=== PATIENT | male | born 1965 | race Caucasian/White ===

== ENCOUNTER 2016-07-10 11:47 | Emergency (ER) | payer MEDICAID ==
[2009-05-18 06:30] VITALS: BMI 32.9
== END 2016-07-10 14:44 | disposition home or self-care (01) ==
LOC: D.ER 11:47
DX: I12.0 Hypertensive chronic kidney disease with stage 5 chronic kidney disease or end stage renal disease (principal); N18.6 End stage renal disease; Z99.2 Dependence on renal dialysis

== ENCOUNTER 2016-12-24 21:47 | Emergency (ER) | payer MEDICAID ==
[2009-05-18 06:30] VITALS: BMI 32.9
== END 2016-12-24 23:00 | disposition left against medical advice (07) ==
LOC: D.ER 21:47
DX: R51 Headache (principal)

== ENCOUNTER 2017-02-14 03:43 | Emergency (ER) | payer MEDICAID ==
[2009-05-18 06:30] VITALS: BMI 32.9
== END 2017-02-14 06:14 | disposition home or self-care (01) ==
LOC: D.ER 03:43
DX: S39.012A Strain of muscle, fascia and tendon of lower back, initial encounter (principal); V43.52XA Car driver injured in collision with other type car in traffic accident, initial encounter; Y93.89 Activity, other specified; Y92.410 Unspecified street and highway as the place of occurrence of the external cause; F17.200 Nicotine dependence, unspecified, uncomplicated

== ENCOUNTER 2017-02-14 20:23 | Emergency (ER) | payer MEDICAID ==
[2009-05-18 06:30] VITALS: BMI 32.9
== END 2017-02-14 22:00 | disposition home or self-care (01) ==
LOC: D.ER 20:23
DX: S39.012A Strain of muscle, fascia and tendon of lower back, initial encounter (principal); V49.9XXA Car occupant (driver) (passenger) injured in unspecified traffic accident, initial encounter; Y93.89 Activity, other specified; Y92.410 Unspecified street and highway as the place of occurrence of the external cause; S16.1XXA Strain of muscle, fascia and tendon at neck level, initial encounter; M62.838 Other muscle spasm

== ENCOUNTER 2017-02-14 22:27 | Emergency (ER) | payer MEDICAID ==
[2009-05-18 06:30] VITALS: BMI 32.9
== END 2017-02-14 23:00 | disposition home or self-care (01) ==
LOC: D.ER 22:27
DX: Z03.89 Encounter for observation for other suspected diseases and conditions ruled out (principal)

== ENCOUNTER 2017-04-07 19:06 | Emergency (ER) | payer MEDICAID ==
[2009-05-18 06:30] VITALS: BMI 32.9
[2017-04-07 20:42] LABS: APPEARANCE CLEAR (CLEAR); BILIRUBIN NEGATIVE (NEGATIVE); COLOR YELLOW (YELLOW); GLUCOSE NEGATIVE (NEGATIVE); KETONE NEGATIVE (NEGATIVE); NITRITE NEGATIVE (NEGATIVE); PROTEIN NEGATIVE (NEGATIVE); SPECIFIC GRAVITY 1.025 (1.005-1.020); UROBILINOGEN NORMAL (NORMAL)
[2017-04-07 20:42] LABS: BASOPHILS 0.2 % (0-2); EOSINOPHILS 3.7 % (0-7); HEMATOCRIT 39.6 % (42.0-54.0); HEMOGLOBIN 12.8 g/dL (13.5-17.5); IMMATURE GRANULOCYTES 0.2 % (0-5); LYMPHOCYTES 35.1 % (15-50); MCH 28.3 pg (26.0-34.0); MCHC 32.3 g/dL (31.0-37.0); MCV 87.4 fL (80.0-100.0); MEAN PLATELET VOLUME 9.7 fL (7.4-10.4); MONOCYTES 6.1 % (2-11); NEUTROPHILS 54.7 % (40-80); RBC 4.53 10x6/uL (4.20-6.10); RDW 13.3 % (11.5-14.5); WBC 6.2 10x3/uL (4.8-10.8)
[2017-04-07 20:48] LABS: PLATELET COUNT 238 10x3/uL (130-400)
[2017-04-07 21:01] LABS: UDS - AMPHET NEGATIVE QUAL (NEGATIVE); UDS - BARB POSITIVE QUAL (NEGATIVE); UDS - BENZO POSITIVE QUAL (NEGATIVE); UDS - COCAINE NEGATIVE QUAL (NEGATIVE); UDS - OPIATE POSITIVE QUAL (NEGATIVE); UDS - PCP NEGATIVE QUAL (NEGATIVE); UDS - THC NEGATIVE QUAL (NEGATIVE)
[2017-04-07 21:06] LABS: ALBUMIN 3.4 g/dL (3.4-5.0); ALKALINE PHOSPHATASE 73 U/L (46-116); ALT (SGPT) 22 U/L (10-68); BILIRUBIN - TOTAL 0.13 mg/dL (0.2-1.3); CALC OSMOLALITY 282 mosm/kg (275-300); CALCIUM 8.6 mg/dL (8.5-10.1); CARBON DIOXIDE 26.4 mmol/L (21.0-32.0); CHLORIDE - SERUM 108 mmol/L (98-107); CREATININE - SERUM 0.9 mg/dL (0.6-1.3); GLUCOSE 98 mg/dL (74-106); POTASSIUM - SERUM 3.7 mmol/L (3.5-5.1); PROTEIN - SERUM 6.3 g/dL (6.4-8.2); SODIUM 141 mmol/L (136-145); UREA NITROGEN 17 mg/dL (7-18); eGFR NON AFRICAN AMERICAN > 90 mL/min (90-120)
== END 2017-04-08 15:08 | disposition home or self-care (01) ==
LOC: D.ER 19:06
PROVIDERS: Physician Assistant Medical
DX: F11.10 Opioid abuse, uncomplicated (principal); F13.10 Sedative, hypnotic or anxiolytic abuse, uncomplicated; F19.10 Other psychoactive substance abuse, uncomplicated

== ENCOUNTER 2017-09-10 19:40 | Inpatient (IN) | payer MEDICAID ==
[~2017-09-10] VITALS: Ht 182.9 cm; Wt 105.5 kg
--- NOTE | ~2017-09-10 | CN ---
PATIENT NAME:YAN MCNEIL MEDICAL RECORD: [id number] : 69 LOCATION:ELAD.2309 ADMIT DATE: 09/10/17 ACCOUNT: [id number] CONSULTING PHYSICIAN: OC RAMSAY III, MD REFERRING PHYSICIAN: NAKUL SGAE MD DATE OF CONSULTATION: 09/11/2017 FINDINGS: This is a 52-year-old white male who was admitted to the intensive care unit following an overdose on baclofen. 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 He stated that he had been unaccustomed to working this hard for quite some time, although he did have experience doing this kind of work when he was much younger. He stated that during the second day, the pain became very severe and he took more of his medication than he should have. In addition to this, the patient is suffering from an acute urinary tract infection. Other stressors include the fact that the patient is currently from his and will likely have a divorce in the very near future. On the positive side, he is currently living with his former [id number] and they do plan to go into the car business together. The patient does admit to a past history of alcohol abuse, but denies current abuse at the present time. The patient very strongly denies the desire to hurt himself yesterday or at the current time. On exam, mood is generally pleasant. Affect is somewhat reserved. Speech is fluent. Content of thought is negative for suicidal ideation or intent. The patient is oriented and memory is intact. DIAGNOSTIC IMPRESSION: AXIS I: Depression by history -- currently not suicidal. PLAN: 1. I have discussed with the patient the advisability of getting outpatient treatment. He is agreeable to an appointment at [facility]. Nursing staff has been informed of this. 2. I feel that he may be discharged when medically stable. TRANSINT:[id number] Voice Confirmation ID: [id number] DOCUMENT ID: [id number] OC RAMSAY III, MD at 0553 CC: [id number] DICTATION DATE: 09/11/171509 DITCHING MACHINE OPERATING ENGINEER: 09/11/17 151 DIS IN 09/11/17 [id number] [place] [address]
[2017-09-10 20:10] LABS: BASOPHILS 0.3 % (0-2); EOSINOPHILS 3.2 % (0-7); HEMOGLOBIN 13.5 g/dL (13.5-17.5); IMMATURE GRANULOCYTES 0.1 % (0-5); LYMPHOCYTES 32.7 % (15-50); MCH 28.2 pg (26.0-34.0); MCHC 32.9 g/dL (31.0-37.0); MCV 85.6 fL (80.0-100.0); MEAN PLATELET VOLUME 9.6 fL (7.4-10.4); NEUTROPHILS 55.7 % (40-80); PLATELET COUNT 239 10x3/uL (130-400); RBC 4.79 10x6/uL (4.20-6.10); RDW 13.3 % (11.5-14.5); WBC 6.9 10x3/uL (4.8-10.8)
[2017-09-10 20:20] VITALS: BP 151/99
[2017-09-10 20:23] LABS: APPEARANCE CLEAR (CLEAR); BILIRUBIN NEGATIVE (NEGATIVE); COLOR YELLOW (YELLOW); GLUCOSE NEGATIVE (NEGATIVE); KETONE NEGATIVE (NEGATIVE); NITRITE NEGATIVE (NEGATIVE); PROTEIN NEGATIVE (NEGATIVE); UROBILINOGEN NORMAL (NORMAL)
[2017-09-10 20:25] LABS: BACTERIA MODERATE /hpf (NONE SEEN); EPITHELIAL CELLS 0-5 /hpf (0-5); MUCUS <1+ /lpf (NONE SEEN); RED CELLS - URINE 0-5 /hpf (0-5); WHITE CELLS - URINE 25-50 /hpf (0-5)
[2017-09-10 20:33] LABS: ACETAMINOPHEN 7.9 ug/mL (10.0-30.0); ALBUMIN 3.7 g/dL (3.4-5.0); ALKALINE PHOSPHATASE 92 U/L (46-116); ALT (SGPT) 32 U/L (10-68); CALC OSMOLALITY 292 mosm/kg (275-300); CALCIUM 9.4 mg/dL (8.5-10.1); CARBON DIOXIDE 25.6 mmol/L (21.0-32.0); CHLORIDE - SERUM 111 mmol/L (98-107); GLUCOSE 108 mg/dL (74-106); PROTEIN - SERUM 6.9 g/dL (6.4-8.2); SODIUM 146 mmol/L (136-145); UREA NITROGEN 15 mg/dL (7-18); eGFR NON AFRICAN AMERICAN 84 mL/min (90-120)
[2017-09-10 20:33] LABS: UDS - AMPHET NEGATIVE QUAL (NEGATIVE); UDS - BARB POSITIVE QUAL (NEGATIVE); UDS - BENZO NEGATIVE QUAL (NEGATIVE); UDS - COCAINE NEGATIVE QUAL (NEGATIVE); UDS - OPIATE POSITIVE QUAL (NEGATIVE); UDS - PCP NEGATIVE QUAL (NEGATIVE); UDS - THC NEGATIVE QUAL (NEGATIVE)
[2017-09-10 21:20] VITALS: BP 112/66
[2017-09-10 22:20] VITALS: BP 101/61
[2017-09-10 23:00] VITALS: BP 122/80
[2017-09-11] VITALS (15 sets, daily range): BP systolic 121–169; BP diastolic 73–99; Ht 182.9 cm; Wt 105.5 kg
[2017-09-11] MEDS ORDERED: FIORICET-COD 51 EACH PO (00:34)
[2017-09-11] MEDS ORDERED: HYDROCODONE-APA1 TAB PO (00:35)
[2017-09-11] MEDS ORDERED: AMBIEN10 MG PO (00:35)
[2017-09-11] MEDS ORDERED: BACLOFEN10 MG PO (03:03)
[2017-09-11] MEDS ORDERED: NEURONTIN 400400 MG PO (03:03)
[2017-09-11] MEDS ORDERED: SINEQUAN25 MG PO (03:06)
[2017-09-11 06:24] LABS: BASOPHILS 0.1 % (0-2); HEMATOCRIT 39.6 % (42.0-54.0); HEMOGLOBIN 12.8 g/dL (13.5-17.5); IMMATURE GRANULOCYTES 0.1 % (0-5); LYMPHOCYTES 37.2 % (15-50); MCH 27.9 pg (26.0-34.0); MCHC 32.3 g/dL (31.0-37.0); MCV 86.5 fL (80.0-100.0); MEAN PLATELET VOLUME 9.8 fL (7.4-10.4); MONOCYTES 8.6 % (2-11); PLATELET COUNT 233 10x3/uL (130-400); RBC 4.58 10x6/uL (4.20-6.10); RDW 13.6 % (11.5-14.5); WBC 7.3 10x3/uL (4.8-10.8)
[2017-09-11 06:42] LABS: ALBUMIN 3.2 g/dL (3.4-5.0); ALKALINE PHOSPHATASE 82 U/L (46-116); ALT (SGPT) 28 U/L (10-68); BILIRUBIN - TOTAL 0.26 mg/dL (0.2-1.3); CALC OSMOLALITY 284 mosm/kg (275-300); CALCIUM 8.7 mg/dL (8.5-10.1); CARBON DIOXIDE 26.5 mmol/L (21.0-32.0); CHLORIDE - SERUM 110 mmol/L (98-107); CREATININE - SERUM 0.9 mg/dL (0.6-1.3); GLUCOSE 92 mg/dL (74-106); POTASSIUM - SERUM 3.9 mmol/L (3.5-5.1); PROTEIN - SERUM 6.4 g/dL (6.4-8.2); SODIUM 143 mmol/L (136-145); UREA NITROGEN 12 mg/dL (7-18); eGFR NON AFRICAN AMERICAN > 90 mL/min (90-120)
[2017-09-11] MEDS ORDERED: BACTRIM DS TABL1 TAB PO (15:11)
== END 2017-09-11 18:00 | disposition home or self-care (01) | DRG 918 ==
LOC: D.ER 19:40 → D.ICU 22:32 → D.EDHOLD 22:32 → D.ICU 22:32 → D.EDHOLD 22:33 → D.ICU 09-11 02:00
PROVIDERS: Family Medicine
DX: T42.8X2A Poisoning by antiparkinsonism drugs and other central muscle-tone depressants, intentional self-harm, initial encounter (principal); N39.0 Urinary tract infection, site not specified; F32.9 Major depressive disorder, single episode, unspecified

== ENCOUNTER 2018-01-31 03:53 | Inpatient (IN) | payer MEDICAID ==
[2018-01-31] VITALS (32 sets, daily range): BP systolic 104–139; BP diastolic 62–90; Ht 182.9 cm; Wt 111.2 kg
[~2018-01-31] VITALS: Ht 182.9 cm; Wt 111.2 kg
--- NOTE | ~2018-01-31 | MORECARE ---
CASE MANAGEMENT DISCHARGE SUMMARY PATIENT: YAN MCNEIL UNIT: [id number] ADM DATE: 01/31/18 AGE: 52 : [birth year] SEX: M ROOM/BED: D.2314 AUTHOR: AIDA SOTO PHYSICIAN: REFERRING PHYSICIAN: RADHA SAENZ MD DATE OF SERVICE: 02/02/18 Discharge Plan Patient Name: YAN MCNEIL [facility] [facility] 1965 Planned Disposition: Inpatient Psych Facility Anticipated Discharge Date: Discharge Date: 02/02/2018 Expected LOS: Initial Reviewer: [email or web address] Initial Review Date: 01/31/2018 Generated: 02/02/18 7:03 pm Comments DCP- Discharge Planning Updated by [email or web address]: Aparna Reynoso on 02/02/18 4:[address] LATE ENTRY 02/01/18 @ 1500 CM was notified that patient needed inpatient psychiatric or drug rehab placement. CM met with patient regarding discharge planning. Patient refusing to go to inpatient psychiatric or inpatient drug rehab facility. At that point the patient was placed on [address] Florez. Placed on hold at 15:15 02/01/18. CM will continue to follow and assist with discharge planning / needs LATE ENTRY 02/02/18 @ 1045 CM notified that patient was now willing for placement. CM notified transfer center and faxed over records. CM was notified that patient would only go to [facility] in [place] d/t transportation getting home. CM called [facility] to see if beds are available. Meanwhile received notice that patient had been accepted to [facility] in and agreeing to go. CM will continue to follow and assist as needed with discharge planning. Last DP export: 02/02/18 4:35 p Patient Name: YAN MCNEIL Page [id number] at 1803 All edits/amendments must be made on the electronic document DICTATION DATE: 02/02/181801 WAY INSPECTOR: ROSANNA 02/02/181801 RPT#: [id number] DC DATE:02/02/18 STATUS: DIS IN [id number] [place] [address] END OF REPORT
--- NOTE | ~2018-01-31 | CN ---
PATIENT NAME:YAN MCNEIL MEDICAL RECORD: [id number] : [birth year] LOCATION:MissyICUD.2314 ADMIT DATE: 01/31/18 ACCOUNT: [id number] CONSULTING PHYSICIAN: ERIK BAILEY MD REFERRING PHYSICIAN: RADHA SAENZ MD DATE OF CONSULTATION: 01/31/2018 IDENTIFYING DATA: The patient is 52 years old and he is admitted to the hospital on a voluntary basis secondary to an overdose. The patient apparently has a roommate, who was concerned that he had taken too many medications and he called the ambulance. The patient states that this was accidental, but he apparently emptied several bottles. He was quite lethargic. He had empty bottles of [place], Fioricet, and Xanax and they were filled in late January 25 and now are empty. The roommate told EMS that he did not think the patient was trying to kill himself and he says he was not. The patient himself endorses a lot of depressive symptoms, but says he was not trying to kill himself. He has no explanation as to how he could have taken so many pills. He strongly denies that he has a substance abuse problem. MENTAL STATUS EXAMINATION: The patient is awake, alert and oriented to person, place, time and situation. His mood is flat. His affect is constricted. Thought processes are circumstantial. Memory, concentration, and abstraction abilities are moderately impaired, and he denies any intent to harm himself or others as well as overt psychotic symptoms. ASSESSMENT: 1. Status post overdose. 2. Major depression. 3. Rule out substance abuse. PLAN: At this time, the situation is potentially very dangerous. This is a patient, who easily could have killed himself if his roommate had not called the police. There is no real explanation as to why he has emptied in less than a week full bottles of very dangerous medications. Even if he is a heavy substance abuser, this is still excessive. I think that there is reasonable grounds to believe that this was a potential suicide, especially since the patient is adamant that he does not have a substance abuse problem. It is my recommendation that once he is medically stabilized, he is either transferred to acute inpatient psychiatric care for a brief observation to ensure that he is not indeed actually dangerous to himself or if he is more forthcoming about his substance abuse and indicates that he does have a substance abuse problem, it would be reasonable and appropriate to send him to a residential substance abuse program. Either this was an intentional overdose or he has a very bad substance abuse problem, either way he is a potential risk to himself and should not be just allowed to go to outpatient care. TRANSINT:[id number] Voice Confirmation ID: [id number] DOCUMENT ID: [id number] CONSULT REPORT [id number] YAN MCNEIL, ERIK NAP[place]ES at 1017 CC: [id number] DICTATION DATE: 01/31/18 1250 TAXICAB DRIVER: 01/31/18 1312 ADM IN [id number] [place] [address]
--- NOTE | ~2018-01-31 | MORECARE ---
CASE MANAGEMENT DISCHARGE SUMMARY PATIENT: YAN MCNEIL UNIT: [id number] ADM DATE: 01/31/18 AGE: 52 : [birth year] SEX: M ROOM/BED: D.2314 AUTHOR: AIDA SOTO PHYSICIAN: REFERRING PHYSICIAN: RADHA SAENZ MD DATE OF SERVICE: 02/02/18 Discharge Plan Patient Name: YAN MCNEIL [facility] [facility] 1965 Planned Disposition: Inpatient Psych Facility Anticipated Discharge Date: Discharge Date: 02/02/2018 Expected LOS: Initial Reviewer: [email or web address] Initial Review Date: 01/31/2018 Generated: 02/02/18 6:35 pm External Providers External Provider: [facility] Next Contact Date: Service Request Date: Service Type: Resolution: Reviewer: Comments: Patient Name: YAN MCNEIL Page [phone] at 1735 All edits/amendments must be made on the electronic document DICTATION DATE: 02/02/181734 UTILITY ACCOUNTS DIRECTOR: ROSANNA 02/02/181734 RPT#: [id number] DC DATE:02/02/18 STATUS: DIS IN [facility] [address] [place] [address] END OF REPORT
[~2018-01-31 03:53] MED LIST: AMBIEN10 MG PO; BACLOFEN10 MG PO; BACTRIM DS TABL1 TAB PO; FIORICET-COD 51 EACH PO; HYDROCODONE-APA1 TAB PO; NEURONTIN 400400 MG PO; SINEQUAN25 MG PO
[2018-01-31 04:21] LABS: BASOPHILS 0.1 % (0-2); EOSINOPHILS 3.2 % (0-7); HEMATOCRIT 41.2 % (42.0-54.0); HEMOGLOBIN 13.6 g/dL (13.5-17.5); IMMATURE GRANULOCYTES 0.4 % (0-5); MCH 29.1 pg (26.0-34.0); MCV 88.2 fL (80.0-100.0); MEAN PLATELET VOLUME 9.7 fL (7.4-10.4); MONOCYTES 10.6 % (2-11); NEUTROPHILS 53.7 % (40-80); PLATELET COUNT 235 10x3/uL (130-400); RBC 4.67 10x6/uL (4.20-6.10); RDW 13.1 % (11.5-14.5); WBC 6.9 10x3/uL (4.8-10.8)
[2018-01-31 04:30] LABS: UDS - AMPHET NEGATIVE QUAL (NEGATIVE); UDS - BARB POSITIVE QUAL (NEGATIVE); UDS - BENZO NEGATIVE QUAL (NEGATIVE); UDS - COCAINE NEGATIVE QUAL (NEGATIVE); UDS - OPIATE POSITIVE QUAL (NEGATIVE); UDS - PCP NEGATIVE QUAL (NEGATIVE); UDS - THC POSITIVE QUAL (NEGATIVE)
[2018-01-31 04:36] LABS: ACETAMINOPHEN 3.1 ug/mL (10.0-30.0); ALBUMIN 3.3 g/dL (3.4-5.0); ALKALINE PHOSPHATASE 78 U/L (46-116); ALT (SGPT) 48 U/L (10-68); CALC OSMOLALITY 290 mosm/kg (275-300); CALCIUM 8.7 mg/dL (8.5-10.1); CARBON DIOXIDE 24.4 mmol/L (21.0-32.0); CHLORIDE - SERUM 108 mmol/L (98-107); GLUCOSE 108 mg/dL (74-106); MAGNESIUM - SERUM 2.2 mg/dL (1.8-2.4); POTASSIUM - SERUM 3.7 mmol/L (3.5-5.1); PROTEIN - SERUM 6.6 g/dL (6.4-8.2); SODIUM 144 mmol/L (136-145); UREA NITROGEN 21 mg/dL (7-18); eGFR NON AFRICAN AMERICAN 84 mL/min (90-120)
[2018-01-31 04:40] LABS: BILIRUBIN - TOTAL 0.09 mg/dL (0.2-1.3)
[2018-01-31 04:42] LABS: APPEARANCE HAZY (CLEAR); BILIRUBIN NEGATIVE (NEGATIVE); COLOR YELLOW (YELLOW); GLUCOSE NEGATIVE (NEGATIVE); KETONE NEGATIVE (NEGATIVE); NITRITE NEGATIVE (NEGATIVE); PROTEIN NEGATIVE (NEGATIVE); UROBILINOGEN NORMAL (NORMAL)
[2018-01-31 04:43] LABS: BACTERIA MODERATE /hpf (NONE SEEN); EPITHELIAL CELLS OCC /hpf (0-5); WHITE CELLS - URINE 25-50 /hpf (0-5)
[2018-02-01] VITALS (20 sets, daily range): BP systolic 117–169; BP diastolic 65–108
[2018-02-01 05:11] LABS: BASOPHILS 0.1 % (0-2); EOSINOPHILS 3.3 % (0-7); HEMATOCRIT 40.5 % (42.0-54.0); HEMOGLOBIN 13.1 g/dL (13.5-17.5); IMMATURE GRANULOCYTES 0.3 % (0-5); LYMPHOCYTES 33.2 % (15-50); MCH 28.6 pg (26.0-34.0); MCHC 32.3 g/dL (31.0-37.0); MCV 88.4 fL (80.0-100.0); MEAN PLATELET VOLUME 10.2 fL (7.4-10.4); MONOCYTES 8.2 % (2-11); NEUTROPHILS 54.9 % (40-80); PLATELET COUNT 248 10x3/uL (130-400); RBC 4.58 10x6/uL (4.20-6.10); WBC 7.1 10x3/uL (4.8-10.8)
[2018-02-01 05:32] LABS: ALBUMIN 2.9 g/dL (3.4-5.0); ALKALINE PHOSPHATASE 76 U/L (46-116); ALT (SGPT) 50 U/L (10-68); BILIRUBIN - TOTAL 0.22 mg/dL (0.2-1.3); CALCIUM 8.2 mg/dL (8.5-10.1); CHLORIDE - SERUM 107 mmol/L (98-107); CREATININE - SERUM 0.9 mg/dL (0.6-1.3); GLUCOSE 79 mg/dL (74-106); PHOSPHOROUS 3.4 mg/dL (2.5-4.9); POTASSIUM - SERUM 3.9 mmol/L (3.5-5.1); SODIUM 141 mmol/L (136-145); eGFR NON AFRICAN AMERICAN > 90 mL/min (90-120)
[2018-02-01 05:34] LABS: CALC OSMOLALITY 278 mosm/kg (275-300); UREA NITROGEN 11 mg/dL (7-18)
[2018-02-02] VITALS: BP 125/89
[2018-02-02 01:00] VITALS: BP 135/81
[2018-02-02 02:00] VITALS: BP 126/83
[2018-02-02 03:00] VITALS: BP 145/95
[2018-02-02 04:00] VITALS: BP 138/85
[2018-02-02 05:20] LABS: ALBUMIN 3.1 g/dL (3.4-5.0); ALKALINE PHOSPHATASE 83 U/L (46-116); ALT (SGPT) 47 U/L (10-68); BILIRUBIN - TOTAL 0.24 mg/dL (0.2-1.3); CALCIUM 8.6 mg/dL (8.5-10.1); CARBON DIOXIDE 26.3 mmol/L (21.0-32.0); CHLORIDE - SERUM 105 mmol/L (98-107); CREATININE - SERUM 0.8 mg/dL (0.6-1.3); GLUCOSE 81 mg/dL (74-106); MAGNESIUM - SERUM 1.9 mg/dL (1.8-2.4); PHOSPHOROUS 3.5 mg/dL (2.5-4.9); POTASSIUM - SERUM 3.4 mmol/L (3.5-5.1); PROTEIN - SERUM 6.6 g/dL (6.4-8.2); SODIUM 141 mmol/L (136-145); eGFR NON AFRICAN AMERICAN > 90 mL/min (90-120)
[2018-02-02 05:28] LABS: BASOPHILS 0.1 % (0-2); HEMATOCRIT 44.4 % (42.0-54.0); HEMOGLOBIN 14.8 g/dL (13.5-17.5); IMMATURE GRANULOCYTES 0.1 % (0-5); LYMPHOCYTES 37.2 % (15-50); MCH 28.8 pg (26.0-34.0); MCHC 33.3 g/dL (31.0-37.0); MCV 86.5 fL (80.0-100.0); MONOCYTES 8.2 % (2-11); NEUTROPHILS 52.4 % (40-80); PLATELET COUNT 263 10x3/uL (130-400); RBC 5.13 10x6/uL (4.20-6.10); RDW 12.7 % (11.5-14.5); WBC 7.3 10x3/uL (4.8-10.8)
[2018-02-02 05:33] LABS: CALC OSMOLALITY 277 mosm/kg (275-300); UREA NITROGEN 7 mg/dL (7-18)
== END 2018-02-02 16:35 | disposition short-term general hospital (02) | DRG 918 ==
LOC: D.ER 03:53 → D.ICU 05:09
PROVIDERS: Emergency Medicine; Family Medicine
DX: T50.901A Poisoning by unspecified drugs, medicaments and biological substances, accidental (unintentional), initial encounter (principal); N39.0 Urinary tract infection, site not specified; F12.10 Cannabis abuse, uncomplicated; G89.29 Other chronic pain; F32.9 Major depressive disorder, single episode, unspecified

== ENCOUNTER 2019-12-15 13:44 | Emergency (ER) | payer OTHER ==
[~2019-12-15] VITALS: Ht 182.9 cm; Wt 84.1 kg
[2019-12-15 14:13] VITALS: BP 167/92; Ht 182.9 cm; Wt 84.1 kg
== END 2019-12-15 16:56 | disposition home or self-care (01) ==
LOC: D.ER 13:44
DX: S01.01XA Laceration without foreign body of scalp, initial encounter (principal); W19.XXXA Unspecified fall, initial encounter; Y93.9 Activity, unspecified; Y92.9 Unspecified place or not applicable